=== PATIENT | female | born 1960 | race Caucasian/White ===

== ENCOUNTER 2019-10-20 20:18 | Emergency (ER) | payer MEDICAID ==
[~2019-10-20] VITALS: Ht 160 cm; Wt 55.0 kg
[~2019-10-20 20:18] MED LIST: RED YEAST RICE PO
[2019-10-20 20:21] VITALS: BP 165/127
[2019-10-20] MEDS ORDERED: LORazepam 1 MG tablet PO ONE (22:10)
== END 2019-10-20 22:30 | disposition home or self-care (01) ==
LOC: ER 20:19
DX: F41.9 Anxiety disorder, unspecified (principal); E78.00 Pure hypercholesterolemia, unspecified; G89.29 Other chronic pain; Z88.6 Allergy status to analgesic agent; Z79.899 Other long term (current) drug therapy
CPT/HCPCS: 99284

== ENCOUNTER 2019-12-05 15:16 | Emergency (ER) | payer MEDICAID ==
[~2019-12-05] VITALS: Ht 160 cm; Wt 40.0 kg
[2019-12-05 15:25] VITALS: BP 139/52
== END 2019-12-05 16:01 | disposition home or self-care (01) ==
LOC: ER 15:17
DX: M79.674 Pain in right toe(s) (principal); E78.00 Pure hypercholesterolemia, unspecified; G89.29 Other chronic pain; F41.9 Anxiety disorder, unspecified; Z88.5 Allergy status to narcotic agent; Z88.8 Allergy status to other drugs, medicaments and biological substances
CPT/HCPCS: 99281; 99283

== ENCOUNTER 2020-01-08 09:40 | Emergency (ER) | payer MEDICAID ==
[~2020-01-08] VITALS: Ht 160 cm; Wt 49.1 kg
[2020-01-08 09:42] VITALS: BP 134/71
[2020-01-08] MEDS ORDERED: FLUT16SP2 BOTHNARES (09:57)
[2020-01-08] MEDS ORDERED: CEPH250T PO (09:57)
== END 2020-01-08 10:14 | disposition home or self-care (01) ==
LOC: ER 09:41
DX: J32.9 Chronic sinusitis, unspecified (principal); E78.00 Pure hypercholesterolemia, unspecified; E03.9 Hypothyroidism, unspecified; G89.29 Other chronic pain; F41.9 Anxiety disorder, unspecified; Z98.890 Other specified postprocedural states; Z80.41 Family history of malignant neoplasm of ovary; Z88.6 Allergy status to analgesic agent; Z88.5 Allergy status to narcotic agent; Z88.8 Allergy status to other drugs, medicaments and biological substances; Z79.899 Other long term (current) drug therapy
CPT/HCPCS: 99283